=== PATIENT | male | born 1990 | race African-American/Black ===

== ENCOUNTER 2017-06-10 16:41 | Emergency (ER) | payer OTHER | END 2017-06-10 19:40 | disposition home or self-care (01) | LOC: ER 16:41 | DX: S13.9XXA Sprain of joints and ligaments of unspecified parts of neck, initial encounter (principal); S09.90XA Unspecified injury of head, initial encounter; M79.675 Pain in left toe(s); V43.52XA Car driver injured in collision with other type car in traffic accident, initial encounter; Y93.I9 Activity, other involving external motion; Y92.410 Unspecified street and highway as the place of occurrence of the external cause; Y99.8 Other external cause status | CPT/HCPCS: 70450; 72125; 73630; 99284-25 ==

== ENCOUNTER → 2017-07-23 | Outpatient (CLI) | payer OTHER ==
[2017-07-23] MEDS: GADOBUTROL 10 MMOL/10 ML VIAL IV (11:57)
== END | disposition home or self-care (01) ==
LOC: KCIC MRI 10:56
DX: M41.86 Other forms of scoliosis, lumbar region (principal)
CPT/HCPCS: 72110; 72156; A9585

== ENCOUNTER → 2017-11-12 | Outpatient (CLI) | payer OTHER ==
[2017-06-10 19:13] VITALS: BP 131/69
[~2017-11-12] MED LIST: IBUP-1060 PO
--- NOTE | 2017-11-12 16:31 | KCIC ---
MRI of the lumbar spine without contrast 11/12/2017 CLINICAL HISTORY: Low back pain which radiates down the right leg. TECHNIQUE: Unenhanced T1-weighted and T2-weighted sagittal and axial and inversion recovery sagittal images of the lumbar spine were obtained. FINDINGS: Comparison is made to radiographs of the lumbar spine dated 07/23/2017. Minimal S-shaped curvature of the thoracolumbar spine is seen. The morphology and signal characteristics of all the disks of the lumbar spine are within normal limits. The marrow signal of the visualized bony structures is within normal limits. The conus medullaris is normal morphology, position, and signal characteristics. The L1-2 and L2-3 disc space is within normal limits. At the L3-4, L4-5 and L5-S1 disc spaces there are minimal generalized disc bulges. Small focal disc protrusions are seen which measure 1 to 2 mm in AP diameter. Degenerative changes are seen involving the facet joints bilaterally. These are mild. There is mild ligament flavum hypertrophy bilaterally. These findings do not result in significant central spinal canal or neural foraminal stenosis at any level. IMPRESSION: The changes of mild degenerative disc disease are seen involving mid and lower lumbar spine. These findings do not result in significant central spinal canal or neural foraminal stenosis at any level. Electronically signed by: Adonay Rick MD (11/12/2017 4:27 PM) [id number]
== END | disposition home or self-care (01) ==
LOC: KCIC MRI 13:25
PROVIDERS: ATTEND Family Medicine
DX: M51.36 Other intervertebral disc degeneration, lumbar region (principal); M51.26 Other intervertebral disc displacement, lumbar region
CPT/HCPCS: 72148

== ENCOUNTER 2018-11-09 03:02 | Emergency (ER) | payer OTHER ==
[~2018-11-09] VITALS: Ht 172.7 cm; Wt 108.9 kg
[2018-11-09 03:40] VITALS: BP 148/87
[2018-11-09] MEDS ORDERED: HYDR25TA PO (04:16)
--- NOTE | 2018-11-09 04:17 | PHYS DOC ---
Past Medical History Past Medical History: No Pertinent History Past Surgical History: No Surgical History Alcohol Use: None Drug Use: None Adult General Chief Complaint Chief Complaint: Insomnia HPI HPI Patient is a 28 year old male who presents with complaining of unable to sleep. Patient states for the last 1 week he has had problem with his sleep and had several hours in the bed until falling asleep and after couple of hours since waking up and unable to fall asleep. Patient states he feels tired and or even because of not getting enough sleep. Patient denies using the right and alcohol, hallucination, suicidal or homicidal ideation , taking medication and did the basis or previous history of insomnia. Review of Systems Review of Systems Constitutional: Denies fever or chills [] Eyes: Denies change in visual acuity, redness, or eye pain [] HENT: Denies nasal congestion or sore throat [] Respiratory: Denies cough or shortness of breath [] Cardiovascular: No additional information not addressed in HPI [] GI: Denies abdominal pain, nausea, vomiting, bloody stools or diarrhea [] : Denies dysuria or hematuria [] Musculoskeletal: Denies back pain or joint pain [] Integument: Denies rash or skin lesions [] Neurologic: Denies headache, focal weakness or sensory changes [] Endocrine: Denies polyuria or polydipsia [] All other systems were reviewed and found to be within normal limits, except as documented in this note. Allergies Allergies Allergies Coded Allergies Type Severity Reaction Last Updated Verified No Known Drug Allergies 06/10/17 No Physical Exam Physical Exam Constitutional: Well developed, well nourished, no acute distress, non-toxic appearance. [] HENT: Normocephalic, atraumatic Eyes: PERRLA, EOMI, conjunctiva normal, no discharge. [] Neck: Normal range of motion, no tenderness, supple, no stridor. [] Cardiovascular:Heart rate regular rhythm, no murmur [] Lungs & Thorax: Bilateral breath sounds clear to auscultation [] Extremities: No tenderness, no cyanosis, no clubbing, ROM intact, no edema. [] Neurologic: Alert and oriented X 3, no focal deficits noted. [] Psychologic: Affect normal, judgement normal, mood normal. [] Current Patient Data Vital Signs Vital Signs Date Time Temp Pulse Resp B/P (MAP) Pulse Ox O2 Delivery O2 Flow Rate FiO2 11/09/18 03:40 98.5 81 18 148/87 (107) 97 Room Air 98.5 EKG EKG [] Radiology/Procedures Radiology/Procedures [] Course & Med Decision Making Course & Med Decision Making discharge: I've spoken with the patient and/or caregivers. I've explained the patient's condition, diagnosis and treatment plan based on information available to me at this time. I've answered the patient's and/or caregivers questions and addressed any concerns. The patient and/or caregivers have a good understanding the patient's diagnosis, condition and treatment plan as can be expected at this point. Vital signs have been stabilized. The patient's condition is stable for discharge from the emergency department. The patient will pursue further outpatient evaluation with her primary care provider or other designated consulting physician as outlined in the discharge instructions. Patient and/or caregivers are agreeable to this plan of care and follow-up instructions have been explained in detail. The patient and/or caregivers have received these instructions in written format and expressed understanding of these discharge instructions. The patient and her caregivers are aware that if any significant change in condition or worsening of symptoms should prompt him to immediately return to this of the closest emergency department. If an emergent department is not readily available I would encourage him to call 911. Dragon Disclaimer Dragon Disclaimer This electronic medical record was generated, in whole or in part, using a voice recognition dictation system. Departure Departure Impression: Primary Impression: Insomnia Disposition: HOME, SELF-CARE (at 0414) Condition: STABLE Referrals: Felice BLUNT MD (PCP) Patient Instructions: Insomnia Additional Instructions: Drink plenty of liquids Follow-up with your primary care physician in 3-5 days Return to ER if not getting better Scripts Hydroxyzine Hcl (HYDROXYZINE HCL) 25 Mg Tablet 1 TAB PO QHS PRN for INSOMNIA, #20 TAB Prov: YENNIFER KRAUSE MD 11/09/18 Problem Qualifiers Primary Impression: Insomnia Insomnia type: unspecified Qualified Codes: G47.00 - Insomnia, unspecified YENNIFER KRAUSE MD Nov 09, 2018 04:16
== END 2018-11-09 04:41 | disposition home or self-care (01) ==
LOC: ER 03:02
DX: G47.00 Insomnia, unspecified (principal)
CPT/HCPCS: 99283

== ENCOUNTER → 2019-08-03 | Outpatient (CLI) | payer OTHER ==
[~2019-08-03] MED LIST changes: +HYDR25TA PO
--- NOTE | 2019-08-03 13:56 | RAD ---
EXAM: Lumbar spine MRI without contrast. HISTORY: Lumbar trigger point syndrome. TECHNIQUE: Multiplanar, multisequence magnetic resonance imaging of the lumbar spine was performed without contrast. COMPARISON: 11/12/2017 FINDINGS: There is mild S-shaped thoracolumbar scoliosis. There is no listhesis. The vertebral bodies are normal in height. There is no fracture. There is no suspicious osseous lesion. There are few small incidental hemangiomas. The conus terminates at L1. There is no disc protrusion or significant foraminal or central canal stenosis. IMPRESSION: No acute finding or significant foraminal or central canal stenosis. Electronically signed by: Liza Galvez MD (08/03/2019 1:52 PM) [id number]
== END | disposition home or self-care (01) ==
LOC: MRI 12:25
PROVIDERS: ATTEND Family Medicine
DX: M41.85 Other forms of scoliosis, thoracolumbar region (principal); D18.09 Hemangioma of other sites
CPT/HCPCS: 72148